=== PATIENT | male | born 1965 | race African-American/Black ===

== ENCOUNTER 2019-12-14 09:44 | Outpatient (CLI) | payer OTHER ==
[2019-12-14] MEDS ORDERED: Iopamidol-370 76% 500 ML 1 ML ONE (10:22)
--- NOTE | 2019-12-14 10:57 | CT ---
CT ABDOMEN AND PELVIS WITH IV CONTRAST 12/14/2019 CLINICAL INFORMATION: Recently diagnosed prostate cancer. Staging evaluation. COMPARISON: None. Technique: Multiple contiguous axial CT images are obtained through the abdomen and pelvis with IV contrast. Cor onal reformatted images are provided. FINDINGS: Lower Chest: No pulmonary nodule or pleural effusion is seen at either lung base. Minimal atelectasis is present bilaterally. Vessels: The abdominal aorta is normal in caliber. Abdomen: Portal vein:Patent Gallbladder: Within normal limits for CT imaging. Liver: within normal limits. Spleen: within normal limits. Pancreas: There is motion on postcontrast images, the pancreas is a grossly normal appearance. No def inite pancreatic lesion is appreciated. Adrenals: within normal limits. Kidneys: Nonobstructing inferior pole left renal calculus. No additional renal or ureteral calculi ar e seen bilaterally. Kidneys otherwise have a normal CT appearance bilaterally. Bowel: A few scattered colonic diverticula are seen. Loops of small bowel are normal in caliber. Appendix: The appendix is dilated measuring 8 mm, but gas is seen in a large portion of the appendix. This is probably within normal limits for the patient, and there is no periappendiceal inflammatory changes identified. Peritoneum: No ascites or free air; no fluid collection. Mesentery and Retroperitoneum: No enlarged mesenteric or retroperitoneal lymph nodes. Abdominal Wall: within normal limits. Pelvis: Reproductive Organs: Calcifications are seen in the prostate gland. The prostate gland is not enlarge d. Pelvis within normal limits. Bladder: within normal limits. Bones: Prominent anterior osteophytes are seen along the lower thoracic spine with large anterior garrett dging osteophyte at the L5-S1 level with degenerative changes at the lumbosacral junction. No suspicious lytic or sclerotic osseous lesions are identified. Degenerative changes are seen involving the sacroiliac joints bilaterally. IMPRESSION: 1. No acute findings in the abdomen or pelvis. 2. Nonobstructing inferior pole left renal calculus. 3. No CT findings to suggest metastatic disease.
== END 2019-12-14 09:45 | disposition home or self-care (01) ==
LOC: BICCT 09:44
PROVIDERS: ATTEND Urology
DX: C61 Malignant neoplasm of prostate (principal); N20.0 Calculus of kidney
CPT/HCPCS: 74178; Q9967

== ENCOUNTER 2020-01-01 09:27 | Outpatient (CLI) | payer OTHER ==
--- NOTE | 2020-01-01 17:42 | MRI ---
MR OF THE PELVIS WITH AND WITHOUT CONTRAST INDICATION: Prostate Cancer COMPARISON: None TECHNIQUE: Multiplanar, multisequence MR images were obtained of the pelvis with and without IV contr ast. 20 cc of MultiHance was utilized for the examination. The examination was reviewed on a separate Mir[employer] 3-D workstation for multiplanar metric evaluation. FINDINGS: Prostate size: The prostate measured 4.6 x 4.0 x 3.5cm. 29.38 cc. Peripheral zone: No area of restricted diffusion is seen within the peripheral zone. Central zone: No suspicious signal abnormality or focal lesion. Neural vasculature: No evidence of neurovascular invasion Regional lymphadenopathy: None Dynamic contrast enhancement: Negative. Osseous structures: No suspicious osseous lesion is identified. Additional findings: Small amount of residual hemorrhage is seen within the peripheral zone diffusely . IMPRESSION: 1. PIRADS 2- Low (clinically significant cancer is unlikely to be present.)
== END 2020-01-01 09:28 | disposition home or self-care (01) ==
LOC: TBSIIMAG 09:27
PROVIDERS: ATTEND Urology
DX: C61 Malignant neoplasm of prostate (principal)
CPT/HCPCS: 72197

== ENCOUNTER 2020-01-23 16:00 | Outpatient (CLI) | payer OTHER ==
[2020-01-23 17:30] LABS: Hemoglobin 14.1 g/dL (14.0-18.0); Mean Corpuscular Hemoglobin 30.8 pg (27.0-31.0); Mean Corpuscular Volume 93.6 fL (78.0-98.0); Mean Platelet Volume 8.5 fL (7.4-10.4); Platelet Count 176 thou/uL (130-400); Red Blood Cell (RBC) Count 4.57 mill/uL (4.70-6.10); White Blood Cell (WBC) Count 4.4 thou/uL (4.8-10.8)
[2020-01-23 17:31] LABS: Bacteria/HPF None Seen HPF (None Seen); Bilirubin Negative (Negative); Blood, Urine Negative (Negative); Clarity Clear (Clear); Glucose, Urine (Dipstick) Normal (Negative); Leukocyte Negative Leu/uL (Negative); Nitrite Negative (Negative); Protein, Urine (Dipstick) Negative (Neg-Trace); RBC/HPF 0-3 HPF (0-3); Squamous Epithelial None Seen HPF (0-3); Urobilinogen Normal mg/dL (Less than 2); WBC/HPF 0-3 HPF (0-3)
[2020-01-23 17:39] LABS: PTT 28.2 SEC (22.9-36.1); Prothrombin Time 13.4 SEC (12.0-14.7)
[2020-01-23 17:58] LABS: Anion Gap 12 mmol/L (10-20); BUN (Urea Nitrogen) 14 mg/dL (8.4-25.7); Calc. Creatinine Clearance 0 mL/min (70-130); Calcium 9.5 mg/dL (7.8-10.44); Carbon Dioxide 28 mmol/L (22-29); Chloride 109 mmol/L (98-107); Estimated GFR-MDRD 73; Glucose 88 mg/dL (70-105); Potassium 3.9 mmol/L (3.5-5.1); Sodium 145 mmol/L (136-145)
--- NOTE | 2020-01-24 16:44 | EKG ---
Test Reason : Blood Pressure : / mmHG Vent. Rate : 053 BPM Atrial Rate : 053 BPM P-R Int : 168 ms QRS Dur : 104 ms QT Int : 432 ms P-R-T Axes : 053 002 163 degrees QTc Int : 405 ms Sinus bradycardia T wave abnormality, consider lateral ischemia Abnormal ECG When compared with ECG of 11-JUL-2012 04:54, No significant change was found Confirmed by DR. Danish VELAZQUEZ ([id number]) on 01/24/2020 4:44:08 PM Referred By: YANIRA Confirmed By:DR. Danish VELAZQUEZ
== END 2020-01-23 16:01 | disposition home or self-care (01) ==
LOC: LABBT 16:00
PROVIDERS: ATTEND Urology
DX: Z01.818 Encounter for other preprocedural examination (principal); Z12.5 Encounter for screening for malignant neoplasm of prostate; C61 Malignant neoplasm of prostate; I10 Essential (primary) hypertension; N40.1 Benign prostatic hyperplasia with lower urinary tract symptoms; R97.20 Elevated prostate specific antigen [PSA]; R35.0 Frequency of micturition; R35.1 Nocturia; E65 Localized adiposity; N20.0 Calculus of kidney; N35.812 Other bulbous urethral stricture, male; N52.9 Male erectile dysfunction, unspecified
CPT/HCPCS: 80048; 81001; 85027; 85610; 85730; 87086; 93005; 93010

== ENCOUNTER 2020-01-28 10:22 | Day surgery (SDC) | payer OTHER ==
[2020-01-23 16:08] VITALS: BMI 39.4
[~2020-01-28 10:22] MED LIST: Lidocaine 1% PF 5 ML VIAL ONE; PROPOFOL 200 MG/20 ML VIAL ONE
[2020-01-28] MEDS ORDERED: Levofloxacin 500 mg/D5W 100 ml Premix Bag ONE (11:13)
[2020-01-28] MEDS ORDERED: Fentanyl 100 MCG/2 ML VIAL ONE (11:24)
[2020-01-28] MEDS ORDERED: Oxybutynin 5 MG TAB ONE (12:17)
[2020-01-28] MEDS ORDERED: Phenazopyridine HCl 97.5 MG TABLET ONE (12:17)
[2020-01-28] MEDS ORDERED: Ondansetron PF 4 MG/2 ML Vial ONE (12:23)
--- NOTE | 2020-01-28 14:59 | OP ---
DATE OF PROCEDURE: 01/28/2020 PREOPERATIVE DIAGNOSES: 1. A 54-year-old morbidly obese male with history of recent diagnosis of clinical T1c prostate cancer, recently initiated on Lupron, await radiation therapy. 2. History of benign prostatic hyperplasia, on Flomax. 3. Newly-appreciated proximal penile/bulbar urethral stricture about, 12-to 14-Iranian caliber. POSTOPERATIVE DIAGNOSES: 1. A 54-year-old morbidly obese male with history of recent diagnosis of clinical T1c prostate cancer, recently initiated on Lupron, await radiation therapy. 2. History of benign prostatic hyperplasia, on Flomax. 3. Newly-appreciated proximal penile/bulbar urethral stricture about, 12-to 14-Iranian caliber. PROCEDURES PERFORMED: Cystoscopy, direct vision internal urethrotomy, 18-Iranian Creek tip Pagan catheter placement over guidewire. ANESTHESIA: LMA. COMPLICATIONS: None apparent. DISPOSITION: To recovery room in stable condition. INDICATIONS FOR PROCEDURE AND HISTORY: Mr. Guerin is a pleasant 54-year-old male, who was referred to ne for elevated PSA. He has an unremarkable digital rectal exam recently diagnosed with clinical T1c prostate cancer, Alex score 4 + 3, 3/12 cores positive with no perineural invasion. His metastatic locally invasive disease workup is negative on MRI and CT and presents today for DVIU of his occult urethral stricture. Risks and complications and indications for the procedure was reviewed with him in detail including, but not limited to, bleeding, pain, infection, injury to adjacent organs, urosepsis, recurrent nature of urethral stricture disease has been fully discussed with the patient and in detail. DESCRIPTION OF PROCEDURE: After an informed consent was signed, the patient was taken to the operating room, placed in a dorsal lithotomy position with the genital area prepped and draped in the usual surgical sterile fashion. A 17-Iranian cystoscope was utilized for cystoscopy. At the level of the proximal penile urethra, there was a 12-to 14-Iranian annular urethral stricture. I was able to pass a 0.35 Super Stiff wire to the level of the bladder with ease. I was able to negotiate the 17-Iranian rigid cystoscope beyond the urethral stricture. Staging of the prostatic urethra demonstrated mild bilobar hyperplasia with high median bar. The UOs were well away from the bladder neck about 3 to 4 mm with no evidence of bladder tumor stones. Positive trabeculation miles noted. At this time, we left the wire in situ at the level of the bladder and transitioned to a DVIU scope. Restaging of the bulbar stricture with the rigid cystoscope demonstrated persistent annular narrowing, therefore decision was made to perform a DVIU. Using a cold knife, we made an incision at 12 o'clock releasing the annular band. Some residual annular band eventually remains, however, I did not want to cut ventrally. Release of annular dorsal side of the stricture was noted and I was able to bypass without significant issues. With the wire in situ, an 18-Iranian Creek tip Pagan catheter passed without difficulty. 10 mL insufflated and attached to leg bag, gravity bag. He has other urethral strictures, however, they were wide caliber, not warranting treatment. In the bulbar proximal penile urethra, these were large in caliber, does not warrant treatment. The one discrete area of 12- to 14-Iranian stricture was treated with DVIU. He tolerated the procedure well and transported to the recovery room in stable condition. He will continue his Flomax. He will come in for a nurse visit next week for catheter removal and will see me sometime in March for peak flow, PVR. He is informed to contact Radiation Oncology, in which we anticipate radiation treatment can be initiated sometime early April. CC: STEVEN Jeff Job ID: [id number] [facility]
== END 2020-01-28 13:40 | disposition home or self-care (01) ==
LOC: SDC 10:22
PROVIDERS: ATTEND Urology
PROC: 0T7D8ZZ Dilation of Urethra, Via Natural or Artificial Opening Endoscopic (ICD-10-PCS; principal; 2020-01-28)
DX: C61 Malignant neoplasm of prostate (principal); N40.1 Benign prostatic hyperplasia with lower urinary tract symptoms; R35.0 Frequency of micturition; R35.1 Nocturia; N35.812 Other bulbous urethral stricture, male; N52.9 Male erectile dysfunction, unspecified; I10 Essential (primary) hypertension; E78.00 Pure hypercholesterolemia, unspecified; E66.01 Morbid (severe) obesity due to excess calories; Z68.39 Body mass index [BMI] 39.0-39.9, adult; Z79.899 Other long term (current) drug therapy
CPT/HCPCS: J1956; J2001; J2405; J2704; J3010

== ENCOUNTER 2021-02-24 13:19 | Outpatient (CLI) | payer OTHER | END 2021-02-24 13:20 | disposition home or self-care (01) | LOC: LABBT 13:19 | PROVIDERS: ATTEND Urology | DX: Z01.818 Encounter for other preprocedural examination (principal) | CPT/HCPCS: 93005; 93010 ==

== ENCOUNTER 2021-02-25 10:00 | Day surgery (SDC) | payer OTHER ==
[2021-02-24 14:27] VITALS: BMI 42.1
[2021-02-24 16:10] LABS: Mean Corpuscular HGB CONC 31.7 g/dL (32.0-36.0); Mean Corpuscular Hemoglobin 29.2 pg (27.0-33.0); Mean Corpuscular Volume 92.2 fl (81.2-95.1); Mean Platelet Volume 11.3 fl (7.4-10.4); Platelet Count 183 10x3/uL (150-450); RBC Distribution Width 12.7 % (11.5-14.5); Red Blood Cell (RBC) Count 4.11 10x6/uL (4.32-5.72); White Blood Cell (WBC) Count 4.1 10x3/uL (3.5-10.5)
[2021-02-24 16:14] LABS: Anion Gap 11 mmol/L (10-20); BUN (Urea Nitrogen) 18 mg/dL (8.4-25.7); Calc. Creatinine Clearance 0 mL/min (70-130); Calcium 8.8 mg/dL (7.8-10.44); Carbon Dioxide 27 mmol/L (22-29); Chloride 108 mmol/L (98-107); Glucose 150 mg/dL (70-105); Potassium 3.9 mmol/L (3.5-5.1); Sodium 142 mmol/L (136-145)
[2021-02-24 18:16] LABS: PTT 26.2 sec (22.0-33.0); Prothrombin Time 10.9 sec (9.5-12.1)
[2021-02-25 01:23] LABS: SARS-CoV-2 PCR by NAA Not Detected (NotDetected)
[2021-02-25] MEDS ORDERED: Levofloxacin 500 mg/D5W 100 ml Premix Bag ONE (11:12)
[2021-02-25] MEDS ORDERED: Fentanyl 100 MCG/2 ML VIAL ONE ×2 (13:24→15:58)
[2021-02-25] MEDS ORDERED: SUGAMMADEX SODIUM 200 MG/2 ML VIAL ONE ×2 (13:25→14:44)
[2021-02-25] MEDS ORDERED: MORPHINE 5 MG/10 ML PF VIAL ONE (13:25)
[2021-02-25] MEDS ORDERED: Ondansetron PF 4 MG/2 ML Vial ONE (13:38)
[2021-02-25] MEDS ORDERED: PROPOFOL 200 MG/20 ML VIAL ONE (13:38)
[2021-02-25] MEDS ORDERED: diphenhydrAMINE 50 MG/ML VIAL ONE (13:38)
[2021-02-25] MEDS ORDERED: Rocuronium Bromide 10 MG/ML (10ML VIAL) ONE (13:38)
[2021-02-25] MEDS ORDERED: Dexamethasone 20 MG/5 ML VIAL ONE (13:38)
[2021-02-25] MEDS ORDERED: Ketamine 50 MG/ML (10ML VIAL) ONE (14:16)
[2021-02-25] MEDS ORDERED: Midazolam HCl 2 mg/2 ml Vial ONE (14:58)
[2021-02-25] MEDS ORDERED: Phenazopyridine HCl 100 MG TAB ONE (16:07)
[2021-02-25] MEDS ORDERED: Oxybutynin 5 MG TAB ONE (16:07)
[2021-02-25] MEDS ORDERED: HYDROcodone/Acetaminophen 5/325 mg Tablet ONE (17:36)
== END 2021-02-25 18:20 | disposition home or self-care (01) ==
LOC: SDC 10:00
PROVIDERS: ATTEND Urology
PROC: 0TBB8ZX Excision of Bladder, Via Natural or Artificial Opening Endoscopic, Diagnostic (ICD-10-PCS; principal; 2021-02-25)
DX: C61 Malignant neoplasm of prostate (principal); N30.20 Other chronic cystitis without hematuria; N40.1 Benign prostatic hyperplasia with lower urinary tract symptoms; R35.0 Frequency of micturition; R35.1 Nocturia; N35.812 Other bulbous urethral stricture, male; I10 Essential (primary) hypertension; E78.00 Pure hypercholesterolemia, unspecified; E66.01 Morbid (severe) obesity due to excess calories; Z68.41 Body mass index [BMI] 40.0-44.9, adult; Z79.899 Other long term (current) drug therapy
CPT/HCPCS: 36415; 80048; 85027; 85610; 85730; 86850; 86900; 86901; 87635; 88305; J1100; J1200; J1956; J2250; J2274; J2405; J2704; J3010; U0003; U0005

== ENCOUNTER 2021-08-31 10:53 | Outpatient (CLI) | payer OTHER | END 2021-08-31 10:54 | disposition home or self-care (01) | LOC: BICCT 10:53 | PROVIDERS: ATTEND Urology | DX: C61 Malignant neoplasm of prostate (principal); N20.2 Calculus of kidney with calculus of ureter; R31.0 Gross hematuria; N28.89 Other specified disorders of kidney and ureter | CPT/HCPCS: 74178 ==

== ENCOUNTER 2021-09-04 12:26 | Outpatient (CLI) | payer OTHER ==
[2021-09-04 13:25] LABS: PTT 24.8 sec (22.0-33.0); Prothrombin Time 11.1 sec (9.5-12.1)
[2021-09-04 13:32] LABS: Anion Gap 12 mmol/L (10-20); BUN (Urea Nitrogen) 11 mg/dL (8.4-25.7); Calc. Creatinine Clearance 0 mL/min (70-130); Calcium 9.8 mg/dL (7.8-10.44); Carbon Dioxide 25 mmol/L (22-29); Chloride 108 mmol/L (98-107); Glucose 104 mg/dL (70-105); Potassium 3.9 mmol/L (3.5-5.1); Sodium 141 mmol/L (136-145)
[2021-09-04 13:44] LABS: Hemoglobin 12.2 g/dL (13.5-17.5); Mean Corpuscular HGB CONC 32.8 g/dL (32.0-36.0); Mean Corpuscular Hemoglobin 27.7 pg (27.0-33.0); Mean Corpuscular Volume 84.4 fl (81.2-95.1); Mean Platelet Volume 10.1 fl (7.4-10.4); Platelet Count 181 10x3/uL (150-450); Red Blood Cell (RBC) Count 4.41 10x6/uL (4.32-5.72); White Blood Cell (WBC) Count 3.9 10x3/uL (3.5-10.5)
[2021-09-04 13:55] LABS: Bilirubin Neg (Negative); Blood, Urine Negative (Negative); Clarity Clear (Clear); Glucose, Urine (Dipstick) Normal (Negative); Ketone, Urine Negative (Negative); Leukocyte 25 (Negative); Nitrite Negative (Negative); Protein, Urine (Dipstick) 15 mg/dl (Neg-Trace); Specific Gravity, Urine 1.025 (1.002-1.036); Urobilinogen Normal mg/dL (Less than 2)
[2021-09-04 14:04] LABS: RBC/HPF 0-3 HPF (0-3); WBC/HPF 0-3 HPF (0-3)
[2021-09-04 14:05] LABS: Bacteria/HPF Rare-Few HPF (None Seen); Mucous/LPF Few LPF (<2+); Squamous Epithelial None Seen HPF (0-3); Transitional Epithelial 0-3 HPF (None Seen)
[2021-09-05 13:15] LABS: SARS-CoV-2 PCR by NAA Not Detected (NotDetected)
== END 2021-09-04 12:27 | disposition home or self-care (01) ==
LOC: LABBT 12:26
PROVIDERS: ATTEND Urology
DX: Z01.818 Encounter for other preprocedural examination (principal); Z20.822 Contact with and (suspected) exposure to COVID-19
CPT/HCPCS: 80048; 81001; 85027; 85610; 85730; 87086; 93005; 93010; U0003; U0005

== ENCOUNTER 2021-09-09 07:39 | Day surgery (SDC) | payer OTHER ==
[2021-09-08 10:21] VITALS: BMI 41.2
[2021-09-09] MEDS ORDERED: Levofloxacin 500 mg/D5W 100 ml Premix Bag ONE (08:13)
[2021-09-09] MEDS ORDERED: Hydrochlorothiazide 25 MG TAB PO SCH (09:30)
[2021-09-09] MEDS ORDERED: Fentanyl 100 MCG/2 ML VIAL ONE (10:59)
[2021-09-09] MEDS ORDERED: Midazolam HCl 2 mg/2 ml Vial ONE (10:59)
[2021-09-09] MEDS ORDERED: Iothalamate Meglumine 60% 50 ML VIAL FS ONE (11:01)
[2021-09-09] MEDS ORDERED: SUGAMMADEX SODIUM 200 MG/2 ML VIAL ONE (11:05)
[2021-09-09] MEDS ORDERED: Glycopyrrolate 0.2 MG/ML 5 ML SYRINGE ONE (11:21)
[2021-09-09] MEDS ORDERED: PROPOFOL 200 MG/20 ML VIAL ONE (11:21)
[2021-09-09] MEDS ORDERED: Rocuronium Bromide 10 MG/ML (10ML VIAL) ONE (11:21)
[2021-09-09] MEDS ORDERED: Succinylcholine 200 MG/10 ml SYRINGE FS ONE (11:21)
[2021-09-09] MEDS ORDERED: Lidocaine 1% PF 5 ML VIAL ONE (11:21)
[2021-09-09] MEDS ORDERED: Phenazopyridine HCl 100 MG TAB ONE (12:38)
[2021-09-09] MEDS ORDERED: Labetalol HCl 100 MG/20 ML VIAL ONE (12:38)
[2021-09-09] MEDS ORDERED: Oxybutynin 5 MG TAB ONE (12:38)
[2021-09-09] MEDS ORDERED: hydrALAZINE 20 MG/ML VIAL ONE (13:22)
[2021-09-09] MEDS ORDERED: Morphine 4 MG/ML VIAL ONE ×2 (13:26→14:03)
== END 2021-09-09 16:32 | disposition home or self-care (01) ==
LOC: SDC 07:39
PROVIDERS: ATTEND Urology
PROC: 0T778DZ Dilation of Left Ureter with Intraluminal Device, Via Natural or Artificial Opening Endoscopic (ICD-10-PCS; principal; 2021-09-09)
DX: N20.1 Calculus of ureter (principal); N35.911 Unspecified urethral stricture, male, meatal; N40.1 Benign prostatic hyperplasia with lower urinary tract symptoms; N39.41 Urge incontinence; R35.0 Frequency of micturition; R35.1 Nocturia; C61 Malignant neoplasm of prostate; G47.30 Sleep apnea, unspecified; I10 Essential (primary) hypertension; E78.00 Pure hypercholesterolemia, unspecified; E55.9 Vitamin D deficiency, unspecified; E66.01 Morbid (severe) obesity due to excess calories; Z68.41 Body mass index [BMI] 40.0-44.9, adult; Z79.899 Other long term (current) drug therapy
CPT/HCPCS: 74018; 74420; C2617; J0360; J1956; J2250; J2270; J2704; J3010; Q9961

== ENCOUNTER 2021-12-16 13:56 | Outpatient (CLI) | payer OTHER | END 2021-12-16 13:57 | disposition home or self-care (01) | LOC: BICULT 13:56 | PROVIDERS: ATTEND Urology | DX: C61 Malignant neoplasm of prostate (principal); N20.0 Calculus of kidney | CPT/HCPCS: 76770 ==

== ENCOUNTER 2022-03-16 19:00 | Outpatient (CLI) | payer OTHER | END 2022-03-16 19:01 | disposition home or self-care (01) | LOC: SLEEPLAB 19:00 | PROVIDERS: ATTEND Internal Medicine | DX: G47.33 Obstructive sleep apnea (adult) (pediatric) (principal); R53.83 Other fatigue; R09.89 Other specified symptoms and signs involving the circulatory and respiratory systems; F31.9 Bipolar disorder, unspecified; R06.83 Snoring; G47.10 Hypersomnia, unspecified; G47.00 Insomnia, unspecified; E66.9 Obesity, unspecified; Z68.41 Body mass index [BMI] 40.0-44.9, adult | CPT/HCPCS: 95811 ==

== ENCOUNTER 2024-05-14 19:36 | Emergency (ER) | payer OTHER ==
[2024-05-14] MEDS ORDERED: Ketorolac Tromethamine 30 MG (1 mL) VIAL ONE (21:36)
== END 2024-05-14 23:20 | disposition home or self-care (01) ==
LOC: ERS 19:36
DX: M25.562 Pain in left knee (principal); I10 Essential (primary) hypertension; Z79.899 Other long term (current) drug therapy; W19.XXXA Unspecified fall, initial encounter
CPT/HCPCS: J1885